=== PATIENT | female | born 1990 | race Caucasian/White ===

== ENCOUNTER → 2017-11-10 13:08 | Outpatient (CLI) | payer MEDICAID, SELFPAY ==
--- NOTE | 2017-11-10 | US_ITS ---
US transvaginal Ordering Physician: Dariel Jain MD Patient Age: 27 years: Female HISTORY: ITS.REASON: PELVIC PAIN Previous ablation 2011. No cycle since. Pelvic pain TECHNIQUE: Transvaginal pelvic ultrasound COMPARISON :May 2015 previous pelvic ultrasound FINDINGS Uterus. Uterus is normal size measuring 7.6 cm length x 3.35 cm in AP x 4.4 cm wide Most notable finding is a 1.5cm length x 1 cm AP ovoid area at fundus extending superiorly, to reside beneath the serosa at its superior margin.. There is moderate thick echogenic wall with a small 5 mm fluid center giving as a target-like appearance. This area tapers down towards the top of the endometrial cavity & possibly may communicate with it.. It was not evident previously 2011. I suspect reflects a sequela from the previous ablation procedure. May reflect a resolving of element of prior hematoma/ hematometra ,.. Or possibly displaced endometrium / with focal adenomyosis type process post ablation, these would be included the differential. A degenerative fibroid conceivably could become cystic & yield similar appearance but less likely here.. Appears almost has appearance reminiscent of a early g-sac with decidual reaction would not be the case with history of ablation. The remainder Endometrial stripe itself is somewhat ill-defined as with to be expected to post ablation... This vague ill-defined endometrial stripe post ablation measures up to nearly 8.5 mm most superiorly; and 6 mm AP at body of uterus. Previously 2016 pelvic ultrasound noted ill-defined fibroid posterior myometrium nearly 2 cm size. This prior fibroid was towards the posterior myometrium and thus I doubt would account for the area seen at the fundus seen today.. Otherwise on today's study with close inspection of images question & suspect subtle inhomogeneous posterior myometrium measuring up to 1.5-2 cm cm on today's study , which which may reflect elements of this previously better defined fibroid. Equivocal feature on today, only Questionably present.- In fact No discrete fibroid noted by technologist MW with real-time scanning this study Mild Enlarged left ovary Left ovary measures 4.3 x 3 cm x 3 cm.. The left ovary contains 2 cysts with: Cyst residing more posteriorly measures 1.9 x 1.1 cm. Cyst residing anteriorly cystmeasures 1.6 x 0.8 cm. Right ovary: 2 cm x 1.5 cm x 2 cm. Small follicles scattered throughout Fluid is in the cul-de-sac.. Fluid extends towards the right adnexa with imaged pocket of fluid measuring 3.3 cm AP x 2 cm. IMPRESSION......... Previous ablation changes yield ill-defined endometrium 1.5 x 1 cm target-like area at fundus of uterus.Moderately thick Hyperechoic rim with small fluid 5 mm central portion . Most Likely reflection of post ablation type change- as might be seen with displaced endometrium/ possible focal adenomyosis type feature, ..versus focus of resolving hematoma/hematometra . Left ovary mild enlarged 4.3 cm in length. Contains a 1.9 x 1.1 cm cyst is posterior aspect; and a 1.5 cm cyst towards its anterior aspect Right ovary unremarkable. Fluid in the cul-de-sac extends more towards right adnexa
--- NOTE | 2017-11-10 13:12 | US_ITS ---
US transvaginal Ordering Physician: Dariel Jain MD Patient Age: 27 years: Female HISTORY: ITS.REASON: pelvic pain Previous ablation 2011. No cycle since. Pelvic pain TECHNIQUE: Transvaginal pelvic ultrasound COMPARISON :May 2015 previous pelvic ultrasound FINDINGS Uterus. Uterus is normal size measuring 7.6 cm length x 3.35 cm in AP x 4.4 cm wide Most notable finding is a 1.5cm length x 1 cm AP ovoid area at the fundus extending superiorly just beneath the serosa. There is moderate thick echogenic wall with a small 5 mm fluid center giving as a target-like appearance. This area tapers down towards the top of the endometrial cavity. It was not evident previously 2011. I suspect reflects a sequela from the previous ablation procedure. May reflect a resolving of element of prior hematoma/ hemaometra ,.. or possibly displaced endometrium/endometriosis process,; these would be included the differential. A degenerative fibroid can become cystic and consider but less likely.. It almost has appearance reminiscent of a early g-sac with decidual reaction but extremely unlikely. The remainder Endometrial stripe itself is somewhat ill-defined as with to be expected to post ablation... This vague ill-defined endometrial stripe post ablation measures up to nearly 8.5 mm most superiorly; and 6 mm AP at body of uterus. Previously there is a ill-defined fibroid posterior myometrium nearly 2 cm size. This prior fibroid is towards the posterior myometrium and I doubt would account for the area at the fundus seen today.. Otherwise On close inspection of today's images I would question and suspect subtle inhomogeneous posterior myometrium which possibly could reflect residual elements of this fibroid measuring up to 1.5-2 cm cm. . Equivocal feature.Questionably present. No discrete fibroid noted by technologist MW with real-time scanning this study Mild Enlarged left ovary Left ovary measures 4.3 x 3 cm x 3 cm.. The left ovary contains 2 cysts each ontaining 2 notable cystic Cyst residing more posteriorly measures 1.9 x 1.1 cm. This is residing anteriorly cystmeasures 1.6 x 0.8 cm. Short Right ovary 2 cm x 1.5 cm x 2 cm. Small follicles scattered throughout Fluid is in the cul-de-sac. fluid extends towards the right adnexa with hypoxia fluid measuring 3.3 cm AP x 2 cm wide IMPRESSION......... Previous ablation changes yield ill-defined endometrium 1.5 x 1 cm target-like area at the fundus of uterus.Moderately thick Hyperechoic rim with small fluid 5 mm central portion . Likely reflection of post ablation type change- as might be seen with displaced endometrium or resolving hematoma. Less likely could reflect degenerating fibroid Left ovary mild enlarged 4.3 cm in length. Contains a 1.9 x 1.1 cm cyst is posterior aspect; and a 1.5 cm cyst towards its anterior aspect .. Fluid in the cul-de-sac extends towards right adnexa Right ovary unremarkable.
== END ==
PROVIDERS: Family Provider Family Medicine; PCP Family Medicine; Visit Provider Obstetrics & Gynecology
DX: R10.2 Pelvic and perineal pain (principal)
CPT/HCPCS: 76830

== ENCOUNTER → 2017-11-27 09:09 | Outpatient (CLI) | payer MEDICAID, SELFPAY ==
[2017-11-27 09:11] LABS: Microscopic, Urine URINE MICROSCOPIC (MICROSCOPIC)
[2017-11-27 09:28] LABS: Appearance,Urine CLEAR (Clear); Bilirubin,Urine Negative (Negative); Blood, Urine Negative (Negative); Color,Urine YELLOW (Yellow); Glucose,Urine (UA) Negative (Negative); Ketones,Urine Negative (Negative); Leukocyte Esterase,Urine Negative (Negative); Nitrate,Urine Negative (Negative); PH,Urine 6.5 (5.0-8.5); Protein,Urine Negative (Negative)
[2017-11-27 09:31] LABS: Urine Pregnancy, HCG Qual. Negative (Negative)
[2017-11-27 09:41] LABS: Bacteria,Urine 1+ /lpf; Mucus,Urine 1+ /lpf; WBC,Urine Occasional #/hpf (0-3)
[2017-11-27 09:46] LABS: Basophils % 0.4 % (0.1-2.0); Eosinophils # 0.3 K/mm3 (0.0-0.4); Eosinophils % 2.9 % (0.1-12.0); Hematocrit 38.4 % (37.0-47.0); Hemoglobin 12.7 g/dL (12.2-16.2); Lymphocytes # 1.4 K/mm3 (0.7-4.5); Lymphocytes % 16.1 K/mm3 (10-50); Mean Corpuscular Hemoglobin 28.6 pg (27.0-31.2); Mean Corpuscular Volume 86.7 fl (81-99); Mean Platelet Volume 8.1 fl (7.4-10.4); Monocytes # 0.5 K/mm3 (0.1-1.0); Monocytes % 5.6 % (1.7-9.3); Neutrophils # 6.5 K/mm3 (1.8-7.8); Platelet Count 376 K/mm3 (142-424); Red Blood Count 4.43 M/mm3 (4.20-5.40); Red Cell Distribution Width 12.8 % (11.5-17.5); White Blood Count 8.7 K/mm3 (4.8-10.8)
[2017-11-27 09:56] LABS: Alanine Aminotransferase 15 U/L (12-78); Albumin Level 3.9 gm/dL (3.4-5.0); Albumin/Globulin Ratio 1.1 (1.1-1.8); Alkaline Phosphatase 80 U/L (46-116); Anion Gap 10.7 mEq/L (5-15); Aspartate Amino Transferase 13 U/L (15-37); Bilirubin,Total 0.4 mg/dL (0.2-1.0); Blood Urea Nitrogen 11 mg/dL (7-18); Carbon Dioxide 30 mmol/L (21.0-32.0); Chloride 101 mmol/L (98-107); Creatinine,Serum 0.99 mg/dL (0.55-1.02); Estimated Glomerular Filt Rate 66 ml/min (>60); GFR (African American) 80 ML/MIN (>60); Globulin 3.6 gm/dl (1.3-3.2); Glucose 95 mg/dL (74-106); Potassium 3.7 mmoL/L (3.5-5.1); Sodium 138 mmol/L (136-145); Total Protein,Serum 7.5 gm/dL (6.4-8.2)
== END ==
PROVIDERS: Visit Provider Obstetrics & Gynecology
DX: Z01.812 Encounter for preprocedural laboratory examination (principal); R10.2 Pelvic and perineal pain
CPT/HCPCS: 36415; 80053; 81001; 81025; 85025

== ENCOUNTER 2017-12-01 06:04 | Observation (INO) ==
--- NOTE | 2017-12-01 06:55 | Progress Note ---
[facility] Anesthesia Checklist - Patient Identification Patient Identification: Arm Band, Verbal (Name & ) - Structural Data Admitted From: Home Planned Operative Procedure/s: LVH, possible BSO Consent for Planned Operative Procedure(s) Verified: Yes Verified Documents: Surgical Consent, History and Physical - NPO Status Verified Time NPO: 21:30 - Chart Verification Results Verified: CBC - Additional verifications Patient : No Anesthesia Reactions: No - Airway Assessment C-Spine Mobility Assessed: Yes TMJ Mobility Assessed: Yes Dentition: Good Dentition - Neurological Assessment Level of Consciousness: Awake Hx Seizures: No Numbness or tingling in extremities: No - Anesthesia Plan Anesthesia Risk discussed: Yes Anesthesia Plan: Verified ASA Class: II Anesthesia Type: General [facility] Anesthesia HX I have reviewed the patient's past medical history: Yes Medical History: Reports:: Depression Denies:: Cancer, Diabetes Mellitus Type 1, Diabetes Mellitus Type 2, MRSA, Seizures Other Medical History: Reports: Anemia, Hypothyroidism, Thyroid Disease. Denies : Blood Transfusion Reaction Laterality Cases: Bilateral: Myringotomy (Ear Tubes) Other Surgeries: Yes: Dilation and Curettage, Thyroidectomy, Tubal Ligation Amputation: No Fractures: No *Family Hx:: Coronary Artery Disease, Heart Attack, Hypertension
--- NOTE | 2017-12-01 12:14 | Operative Note ---
Date of procedure: 12/01/17 Pre-op Diagnosis:: 1. Dysfunctional uterine bleeding. 2. Pelvic pain. Post-op Diagnosis:: 1. Dysfunctional uterine bleeding. 2. Pelvic pain. Procedure performed:: Total vaginal hysterectomy, with bilateral salpingectomies. Surgeon:: Dareil Jain MD Data Analyst Etl Developer(s):: LARRY Irwin TWO WAY RADIO TECHNICIAN:: Other (TWO WAY RADIO TECHNICIAN Serafin) Anesthesia: GETA Estimated blood loss (mL): 300 Operative findings:: 1. Pelvic pain. 2. Dysfunctional uterine bleeding. Operative note:: After the patient was prepped and draped in usual fashion and general anesthesia was administered, a weighted speculum was placed within the posterior fourchette of the vagina, and the bulbous cervix was grasped with a double-tooth tenaculum, and retracted to the introitus. The cervix was circumcised with a knife, and the vaginal mucosa was sharply and bluntly dissected free. A posterior colpotomy incision was made with Sidney scissors, and the long lip of the weighted speculum was placed within the posterior peritoneum. The uterosacral ligaments on either side were Anne Marie clamped, cut, and Anne Marie suture with #1 Vicryl, as were the cardinal ligaments and uterine vessels. The peritoneum was entered anteriorly with Sidney scissors, and the long right angle retractor was placed within it. The uterus was flipped anteriorly, and the ovarian pedicle on each side was crossclamped and cut, thus removing the boggy uterine specimen. These pedicles were Anne Marie sutured, and then free tied with #1 Vicryl. Each ovary appeared normal. However, each tube presented with a hydrosalpinx, and a Filshie clip was noted on the left tube, but not on the right. On the right side, the clip was free floating and was retrieved. Each tube was grasped with a Anderson clamp, and crossclamped at its base with a Mery clamp. Each tube was excised, and the base ligated with 2-0 Vicryl. There was no undue bleeding. Pedicles were all inspected and found to be hemostatic. The posterior vaginal cuff was run unlocked with #1 Vicryl, to include the uterosacral ligament pedicles for vaginal support, in a Mathias fashion, to reduce the enterocele. The anterior peritoneum was grasped with a long Allis clamp, and closed with a running pursestring suture of 0 Vicryl, and pulled tight. The vaginal cuff was closed with an anteroposterior running locked suture of #1 Vicryl. The urine was clear in the Ashby catheter. The sponge and needle count was correct. The estimated blood loss was 300 cc. The patient tolerated the procedure well, was taken to PACU in excellent condition. Condition: stable Disposition: PACU Specimens:: 1. Uterus. 2. Bilateral fallopian tubes. Complications:: None
--- NOTE | 2017-12-01 12:31 | Progress Note ---
[facility] Anesthesia Record Part I Intake, IV Amount: 850 Estimated blood loss (mL): 20 Urine output (mL): 50 Blood Products used (#): none Blood Pressure: 131/81 SaO2: 99 Pulse Rate: 104 Respiratory Rate: 18 Temperature: 98.4 F Patient is:: Drowsy, Nasal O2, Stable Stable to PACU at:: 12:27
--- NOTE | 2017-12-01 12:32 | Progress Note ---
[facility] Anesthesia Record Part II Discharge Time: 12:57 Destination: Obstetric Gynecology Dept PACU nurse assessment reviewed?: Yes Patient Condition:: Good Anesthesia Complications:: None
[2017-12-01 13:32] LABS: Hematocrit 33.4 % (37.0-47.0)
--- NOTE | 2017-12-01 13:37 | Progress Note ---
Internal Medicine - PN: Subj *Date: 12/01/17 *Time: 13:36 (Ashby will be removed early in the morning.) Exam Vital signs and Labs for Last 24 Hours: Temp Pulse Resp BP Pulse Ox 98.4 F 99 H 18 131/77 96 12/01/17 12:31 12/01/17 12:47 12/01/17 12:47 12/01/17 12:47 12/01/17 12:47 Laboratory Results - last 24 hr 12/01/17 11:05: Urine Color Yellow, Urine Appearance Sl cloudy, Urine pH 7.5, Ur Specific [place] 1.015, Urine Protein Trace, Urine Glucose (UA) Negative, Urine Ketones Negative, Urine Blood Negative, Urine Nitrate Negative, Urine Bilirubin Negative, Urine Urobilinogen 1.0, Ur Leukocyte Esterase Negative, Urine RBC None, Urine WBC None, Ur Squamous Epith Cells 3-5, Urine Bacteria 1+ 12/01/17 13:20: Hgb 11.0 L, Hct 33.4 L I & O for Last 24 hours: Intake & Output 11/29/17 11/30/17 12/01/17 12/02/17 11:59 11:59 11:59 11:59 Intake Total 850 / 850 Balance 850 / 850 Weight 140 lb
--- NOTE | 2017-12-02 07:26 | Pharmacy Consult Notes ---
[facility] Pharmacy VTE Monitoring - Patient Demographics Admission date: 12/01/17 Report Date: 12/02/17 Time: 07:26 Allergies/Adverse Reactions: Patient Allergies No Known Allergies Allergy (Verified 11/27/17 08:39) Height: 1.6 m Weight: 63.503 kg - VTE Risk Labs: VTE Related Lab Results Hgb 11.0 g/dL (12.2-16.2) L 12/01/17 13:20 Hct 33.4 % (37.0-47.0) L 12/01/17 13:20 - Prophylaxis VTE Prophylaxis Ordered?: Yes Types of VTE Prophylaxis: IPCS Thigh High Location of Applied Device: Bilateral Lower Extremeties - VTE Diagnosis Confirmed Treatment or plan recommended: Continue Current Treatment
--- NOTE | 2017-12-02 07:33 | Progress Note ---
Internal Medicine - PN: Subj *Date: 12/02/17 *Time: 07:31 (This is postop day #1. The patient is afebrile. Her vital signs are stable. Wound is clean. Her abdomen is soft. Her Ashby is out and she has voided well. Her MARY drain drained 100 cc of watery blood overnight. Her hemoglobin dropped slightly to 9.7 g, but she is clinically stable. Going to advance her diet and have her ambulate today.) Exam Vital signs and Labs for Last 24 Hours: Temp Pulse Resp BP Pulse Ox 98.0 F 68 17 133/80 100 12/01/17 21:30 12/02/17 00:30 12/02/17 00:30 12/02/17 00:30 12/02/17 04:08 Laboratory Results - last 24 hr 12/01/17 11:05: Urine Color Yellow, Urine Appearance Sl cloudy, Urine pH 7.5, Ur Specific [place] 1.015, Urine Protein Trace, Urine Glucose (UA) Negative, Urine Ketones Negative, Urine Blood Negative, Urine Nitrate Negative, Urine Bilirubin Negative, Urine Urobilinogen 1.0, Ur Leukocyte Esterase Negative, Urine RBC None, Urine WBC None, Ur Squamous Epith Cells 3-5, Urine Bacteria 1+ 12/01/17 13:20: Hgb 11.0 L, Hct 33.4 L I & O for Last 24 hours: Intake & Output 11/29/17 11/30/17 12/01/17 12/02/17 11:59 11:59 11:59 11:59 Intake Total 2797 / 2797 Output Total 1400 / 1400 Balance 1397 / 1397 Weight 140 lb 140 lb
--- NOTE | 2017-12-02 07:40 | Progress Note ---
Internal Medicine - PN: Subj *Date: 12/02/17 *Time: 07:38 (The last progress note was incorrect (wrong patient)this is postop day #1. The patient is afebrile. Her vital signs are stable. Her hemoglobin is 11.1 g. Her abdomen is soft. Her Ashby will be removed. During the night, she had runs of tachycardia. An EKG was read as normal, but the patient has a strong family history of early myocardial infarctions. I am going to put a consult in to cardiology to evaluate the patient.) Exam Vital signs and Labs for Last 24 Hours: Temp Pulse Resp BP Pulse Ox 98.0 F 68 17 133/80 100 12/01/17 21:30 12/02/17 00:30 12/02/17 00:30 12/02/17 00:30 12/02/17 04:08 Laboratory Results - last 24 hr 12/01/17 11:05: Urine Color Yellow, Urine Appearance Sl cloudy, Urine pH 7.5, Ur Specific [place] 1.015, Urine Protein Trace, Urine Glucose (UA) Negative, Urine Ketones Negative, Urine Blood Negative, Urine Nitrate Negative, Urine Bilirubin Negative, Urine Urobilinogen 1.0, Ur Leukocyte Esterase Negative, Urine RBC None, Urine WBC None, Ur Squamous Epith Cells 3-5, Urine Bacteria 1+ 12/01/17 13:20: Hgb 11.0 L, Hct 33.4 L I & O for Last 24 hours: Intake & Output 11/29/17 11/30/17 12/01/17 12/02/17 11:59 11:59 11:59 11:59 Intake Total 2797 / 2797 Output Total 1400 / 1400 Balance 1397 / 1397 Weight 140 lb 140 lb
--- NOTE | 2017-12-02 09:45 | Consult Report ---
History of Present Illness Consult date: 12/02/17 Requesting physician: Dariel Jain Chief complaint: Tachycardia Additional Medical History:: 1. Hysterectomy 2. Tachycardia 3. History of Nadine's thyroiditis with subsequent thyroidectomy, 2010. Patient on thyroid replacement with subsequent weight loss over the last several years. 4. Strong family history of early coronary artery disease (their mid 40s) in both her father and paternal grandfather. History of present illness: 27-year-old white female with history of Nadine's thyroiditis status post thyroidectomy and subsequent thyroid replacement was in the hospital for hysterectomy with no history of cancer, diabetes, hypertension or hyperlipidemia. Patient noted to have labile heart rate from 60s-140s on pulse oximetry without symptoms. Due to strong family history of early coronary artery disease, cardiology was asked to see the patient. Patient's preop labs are essentially normal with EKG showing sinus rhythm and essentially normal. Patient has 4 healthy kids ranging in age from 5-12 and is active with them without chest pain, pressure or tightness. She denies any IV drug use. She does not smoke. She does relate a one-month history of Adipex use recently but discontinued it when surgery was planned. [facility] History Medical History: Reports:: Depression Denies:: Cancer, Diabetes Mellitus Type 1, Diabetes Mellitus Type 2, MRSA, Seizures Other Medical History: Reports: Anemia, Hypothyroidism, Thyroid Disease. Denies : Blood Transfusion Reaction Laterality Cases: Bilateral: Myringotomy (Ear Tubes) Other Surgeries: Yes: Dilation and Curettage, Thyroidectomy, Tubal Ligation Amputation: No Fractures: No - *Social History Educational Level: Attended Grade School Smoking Status: Never smoker Alcohol Intake: never Substance Use Type: denies use Occupational Status: unemployed Housing: house Household Members: spouse - Psychiatric History Expresses thoughts of harming self/others: None Suicide Plan Description: No Plan Pschychiatric History:: Reports:: Depression *Family Hx:: Coronary Artery Disease, Heart Attack, Hypertension Meds Home Medications Medication Instructions Recorded Confirmed Type phentermine 37.5 mg capsule 37.5 mg PO DAILY 11/13/17 12/01/17 History Levothyroxine Sodium 125 mcg PO DAILY 12/01/17 12/01/17 History [Levothyroxine 125mcg (0.125mg) Tab] Fluticasone Propionate 16 gm NS DAILY 12/02/17 12/02/17 History Loratadine [Claritin 10mg Tablet] 10 mg PO DAILY 12/02/17 12/02/17 History Allergies Allergy/AdvReac Type Severity Reaction Status Date / Time No Known Allergies Allergy Verified 11/27/17 08:39 Review of Systems - *Cardiovascular Denies chest pain, Denies shortness of breath with activity - *Respiratory Denies shortness of breath with activity - *Gastrointestinal Denies abdominal pain - *Genitourinary Denies abnormal periods - *Musculoskeletal Denies joint pain - *Neurologic Denies behavioral changes Exam Vital signs and Labs for Last 24 Hours: Temp Pulse Resp BP Pulse Ox 98.0 F 107 H 18 130/74 100 12/02/17 08:12 12/02/17 08:12 12/02/17 08:12 12/02/17 08:12 12/02/17 08:17 Laboratory Results - last 24 hr 12/01/17 11:05: Urine Color Yellow, Urine Appearance Sl cloudy, Urine pH 7.5, Ur Specific [place] 1.015, Urine Protein Trace, Urine Glucose (UA) Negative, Urine Ketones Negative, Urine Blood Negative, Urine Nitrate Negative, Urine Bilirubin Negative, Urine Urobilinogen 1.0, Ur Leukocyte Esterase Negative, Urine RBC None, Urine WBC None, Ur Squamous Epith Cells 3-5, Urine Bacteria 1+ 12/01/17 13:20: Hgb 11.0 L, Hct 33.4 L I & O for Last 24 hours: Intake & Output 11/29/17 11/30/17 12/01/17 12/02/17 11:59 11:59 11:59 11:59 Intake Total 2797 / 2797 Output Total 1999 Balance 797 / 797 Weight 140 lb 140 lb - *Routine Neck Exam Absent: JVD, carotid bruit - *Routine Respiratory Exam Present: CTA bilaterally - *Routine Cardiovascular Exam Present: RRR. Absent: murmur, gallop, rubs - *Routine Abdominal Exam Present: soft. Absent: tenderness - *Routine Extremities Exam Absent: edema - *Routine Neurological Exam Present: alert, oriented X3, moving all extremities Assessment and Plan (1) Tachycardia Current visit: Yes Status: Acute Category: Medical Code(s): R00.0 - Tachycardia, unspecified (2) Hypothyroidism Current visit: Yes Status: Acute Category: Medical Code(s): E03.9 - Hypothyroidism, unspecified (3) Status post hysterectomy Current visit: Yes Status: Acute Category: Surgical Code(s): Z90.710 - Acquired absence of both cervix and uterus (4) Family history of coronary artery disease in father Current visit: Yes Status: Acute Category: Medical Code(s): Z82.49 - Family history of ischemic heart disease and other diseases of the circulatory system (5) Family history of coronary artery disease in paternal grandfather Current visit: Yes Status: Acute Category: Medical Code(s): Z82.49 - Family history of ischemic heart disease and other diseases of the circulatory system - Assessment and plan all Dx Assessment and Plan for all problems:: 1. Will obtain an echocardiogram to evaluate left ventricular size and function as well as valve status in the setting of tachycardia and recent Adipex use. 2. Will obtain lab work including thyroid panel, BMP and magnesium level. 3. Would like to obtain a 24-hour Holter monitor upon discharge. 4. Supplemental oxygen discontinued with plans to check oxygen saturation on room air and 15 minutes. 5. Further recommendations to follow.
[2017-12-02 10:21] LABS: Anion Gap 9.4 mEq/L (5-15); Calcium 8.5 mg/dL (8.5-10.1); Free Thyroxine Index 6.9 ug/dL (5.93-13.13); Potassium 3.4 mmoL/L (3.5-5.1); Thyroid Stimulating Hormone 0.03 uIU/ml (0.358-3.740)
--- NOTE | 2017-12-03 06:45 | Progress Note ---
Internal Medicine - PN: Subj *Date: 12/03/17 *Time: 06:44 (This is postop day #2. The patient is afebrile. Vital signs stable. Abdomen soft. Urinating well. She has had a cardiology consult because of tachycardia. Her thyroid medication has been adjusted and she is to follow-up with Dr. Marx. She will be discharged today.) Exam Vital signs and Labs for Last 24 Hours: Temp Pulse Resp BP Pulse Ox 98.0 F 104 H 17 125/78 100 12/02/17 16:20 12/03/17 06:11 12/03/17 06:11 12/03/17 06:11 12/02/17 20:29 Laboratory Results - last 24 hr 12/02/17 09:50: Sodium 144, Potassium 3.4 L, Chloride 105, Carbon Dioxide 33 H, Anion Gap 9.4, BUN 5 L, Creatinine 0.87, Estimated Creat Clear 96, Estimated GFR 77, Est GFR ( Amer) 93, Glucose 134 H, Calcium 8.5, Magnesium 1.8, TSH 0.03 L, Free T4 Index 6.9, Thyroxine (T4) 16.0 H, T3 Uptake 43 H I & O for Last 24 hours: Intake & Output 11/30/17 12/01/17 12/02/17 12/03/17 11:59 11:59 11:59 11:59 Intake Total 2797 / 2797 Output Total 1999 Balance 797 / 797 -1999 Weight 140 lb 140 lb Assessment and Plan (1) Tachycardia Current visit: Yes Status: Acute Category: Medical Code(s): R00.0 - Tachycardia, unspecified (2) Hypothyroidism Current visit: Yes Status: Acute Category: Medical Code(s): E03.9 - Hypothyroidism, unspecified (3) Status post hysterectomy Current visit: Yes Status: Acute Category: Surgical Code(s): Z90.710 - Acquired absence of both cervix and uterus (4) Family history of coronary artery disease in father Current visit: Yes Status: Acute Category: Medical Code(s): Z82.49 - Family history of ischemic heart disease and other diseases of the circulatory system (5) Family history of coronary artery disease in paternal grandfather Current visit: Yes Status: Acute Category: Medical Code(s): Z82.49 - Family history of ischemic heart disease and other diseases of the circulatory system
--- NOTE | 2017-12-03 06:50 | Discharge Summary ---
General - General Admission date:: 12/01/17 Discharge date: 12/03/17 (This 27-year-old white female was admitted for definitive treatment of dysfunctional uterine bleeding and pelvic pain. On the date of admission, she was taken the operating room, where she underwent a total vaginal hysterectomy and bilateral salpingectomies, without complications. Her preop hemoglobin was 12.5 g. Postoperatively, the patient was doing well in the night following surgery, when she began to have runs of tachycardia. An EKG was essentially normal, but a cardiology consult was obtained on 12/02/17. The results of that were: Normal from a cardiac point of view. Her thyroid medication has been adjusted, and she is to follow with her primary care physician (Dr. Marx). This morning she is doing well. Her hemoglobin is 11.0 g, but she is clinically stable. She is discharged home on the second postoperative day on Percocet 5/325 (#20), 1 p.o. every 4-6 hours as needed pain. She is to use Tylenol and Motrin intermittently and after a few days as needed. She is given appropriate instructions as to diet and exercise, and she is to return to the office in 2 weeks for folow-up. She is a smoker, but refuses smoking cessation patches.) Objective Vital signs: Temp Pulse Resp BP Pulse Ox 98.0 F 104 H 17 125/78 100 12/02/17 16:20 12/03/17 06:11 12/03/17 06:11 12/03/17 06:11 12/02/17 20:29 Results Labs on day of discharge: Labs from last 24 hours 12/02/17 09:50 Sodium 144 Potassium 3.4 L Chloride 105 Carbon Dioxide 33 H Anion Gap 9.4 BUN 5 L Creatinine 0.87 Estimated Creat Clear 96 Estimated GFR 77 Est GFR ( Amer) 93 Glucose 134 H Calcium 8.5 Magnesium 1.8 TSH 0.03 L Free T4 Index 6.9 Thyroxine (T4) 16.0 H T3 Uptake 43 H DS: Diagnosis - Discharge Diagnosis (1) Tachycardia Status: Acute (2) Hypothyroidism Status: Acute (3) Status post hysterectomy Status: Acute (4) Family history of coronary artery disease in father Status: Acute (5) Family history of coronary artery disease in paternal grandfather Status: Acute Discharge Plan - Patient Discharge Instructions - Follow up Plan Home Medications: Home Medications Medication Instructions Recorded Confirmed Type phentermine 37.5 mg capsule 37.5 mg PO DAILY 11/13/17 12/01/17 History Levothyroxine Sodium 125 mcg PO DAILY 12/01/17 12/01/17 History [Levothyroxine 125mcg (0.125mg) Tab] Fluticasone Propionate 16 gm NS DAILY 12/02/17 12/02/17 History Loratadine [Claritin 10mg Tablet] 10 mg PO DAILY 12/02/17 12/02/17 History Prescriptions/Medication Reconciliation: No Action phentermine 37.5 mg capsule 37.5 mg PO DAILY Loratadine [Claritin 10mg Tablet] 10 mg PO DAILY Levothyroxine Sodium [Levothyroxine 125mcg (0.125mg) Tab] 125 mcg PO DAILY Fluticasone Propionate 16 gm NS DAILY
--- NOTE | 2017-12-03 13:19 | Cardiology Report ---
PROCEDURE: 2-D M-mode and color Doppler study INDICATIONS FOR THE TEST: Chest pain COPD Heart Murmur Tobacco Smoking Palpitations Fatigue Syncope Edema+ Hypertension Diabetes Mellitus Rheumatic Fever SOB RAMIREZ Obesity Hyperlipidemia Family History HD+ Additional History Adipex usage, hx of Nadine's thyroiditis, post hysterectomy 1 day ago with tachycardia PATIENT INFORMATION HEIGHT: 63 WEIGHT: 140 GENDER: Female B/P: 130/74 2-D/M-MODE INTERPRETATION: 2-D MEASUREMENTS OBSERVED VALUES IN CMS Right Ventricular Dimension (RVDd) 1.9 Interventricular Septum (Thickness)(IVsd) 0.7 Left Ventricular Internal Dimensions(LVIDd) 4.0 Left Ventricular Posterior Wall (Thickness)(LVPWd) 0.7 Aortic Root 2.6 Aortic Cusp Separation 2.0 Left Atrial Dimensions (LAD) 2.6 2D 1. Left atrium is normal size, is normal size, there is no concentric left ventricular hypertrophy, visually estimated ejection fraction of 55% with no obvious regional wall motion abnormality. 2. The right atrium and right ventricle are normal size and contractility. 3. The aortic, mitral and tricuspid valve are grossly normal. 4. The pulmonic valve is poorly visualized. 5. No significant pericardial effusion noted. DOPPLER INTERROGATION: Doppler interrogation of the aortic, mitral and tricuspid valvular presence of mild mitral and tricuspid regurgitation, tricuspid and jet velocity is insufficient for calculation of the right ventricular systolic pressure, diastolic parameters are within normal range. CONCLUSION: 1. Normal left ventricular size, preserved left ventricular systolic function, visually estimated ejection fraction 55% with no obvious regional wall motion abnormality, diastolic parameters are within normal range. 2. Mild mitral and tricuspid regurgitation 3. No significant pericardial effusion noted.
== END 2017-12-03 09:25 | disposition home or self-care (01) ==
LOC: OR 06:04 → OB 13:03 → INTOOBSV 13:03
PROVIDERS: ADMIT Obstetrics & Gynecology; ATTEND Obstetrics & Gynecology

== ENCOUNTER → 2018-06-17 12:27 | Outpatient (CLI) | payer MEDICAID, SELFPAY ==
[2018-06-17 13:18] LABS: Basophils % 0.8 % (0.1-2.0); Eosinophils # 0.2 K/mm3 (0.0-0.4); Eosinophils % 4.1 % (0.1-12.0); Hematocrit 40.4 % (37.0-47.0); Hemoglobin 13.1 g/dL (12.2-16.2); Lymphocytes # 1.6 K/mm3 (0.7-4.5); Lymphocytes % 28.7 % (10-50); Mean Corpuscular HGB Conc 32.5 g/dL (31.8-35.4); Mean Corpuscular Hemoglobin 29.3 pg (27.0-31.2); Mean Corpuscular Volume 90.1 fl (81-99); Mean Platelet Volume 8.5 fl (7.4-10.4); Monocytes # 0.4 K/mm3 (0.1-1.0); Monocytes % 6.3 % (1.7-9.3); Neutrophils # 3.4 K/mm3 (1.8-7.8); Neutrophils % 60.2 % (37.0-80.0); Platelet Count 268 K/mm3 (142-424); Red Blood Count 4.48 M/mm3 (4.20-5.40); Red Cell Distribution Width 12.9 % (11.5-17.5); White Blood Count 5.6 K/mm3 (4.8-10.8)
[2018-06-17 13:21] LABS: Anion Gap 14.1 mEq/L (5-15); Blood Urea Nitrogen 13 mg/dL (7-18); Calcium 8.9 mg/dL (8.5-10.1); Carbon Dioxide 27 mmol/L (21.0-32.0); Chloride 103 mmol/L (98-107); Estimated Glomerular Filt Rate 74 ml/min (>60); GFR (African American) 89 ML/MIN (>60); Glucose 93 mg/dL (74-106); Potassium 4.1 mmoL/L (3.5-5.1); Sodium 140 mmol/L (136-145)
== END ==
PROVIDERS: PCP Family Medicine; Visit Provider Internal Medicine Cardiovascular Disease
DX: I20.8 Other forms of angina pectoris (principal); R06.02 Shortness of breath; Z82.49 Family history of ischemic heart disease and other diseases of the circulatory system
CPT/HCPCS: 36415; 80048; 85025

== ENCOUNTER → 2018-06-29 06:58 | Outpatient (CLI) | payer MEDICAID, SELFPAY ==
--- NOTE | 2018-06-29 06:59 | CA_ITS ---
PROCEDURE: 2-D M-mode and color Doppler study INDICATIONS FOR THE TEST: Chest pain X COPD Heart Murmur Tobacco Smoking Palpitations Fatigue Syncope Edema Hypertension Diabetes Mellitus Rheumatic Fever SOBXDOE Obesity Hyperlipidemia Family History HD Additional History PATIENT INFORMATION HEIGHT: 64 WEIGHT:146 GENDER: Female B/P:127/87 2-D/M-MODE INTERPRETATION: 2-D MEASUREMENTS OBSERVED VALUES IN CMS Right Ventricular Dimension (RVDd) 1.6 Interventricular Septum (Thickness)(IVsd) .8 Left Ventricular Internal Dimensions(LVIDd) 4.8 Left Ventricular Posterior Wall (Thickness)(LVPWd) .6 Aortic Root 2.7 Aortic Cusp Separation 1.5 Left Atrial Dimensions (LAD) 2.8 2D 1. Left atrium is normal size, left ventricle is normal size, there is no concentric left ventricular hypertrophy, visually estimated ejection fraction 55% with no regional wall motion abnormality. 2. The right atrium and right ventricle are normal size and contractility. 3. The aortic, mitral and tricuspid valve are grossly normal. 4. The pulmonic valve is poorly visualized. 5. No significant pericardial effusion noted. DOPPLER INTERROGATION: Doppler interrogation of the aortic, mitral and tricuspid valvular presence of trace mitral and tricuspid regurgitation of no hemodynamic significance, diastolic parameters are within normal range. CONCLUSION: 1. Normal left ventricular size, preserved left ventricular systolic function, visually estimated ejection fraction 55% with no regional wall motion abnormality, diastolic parameters are within normal range. 2. Trace mitral and tricuspid regurgitation of no hemodynamic significance. 3. No significant pericardial effusion noted.
== END ==
PROVIDERS: PCP Family Medicine; Visit Provider Internal Medicine Cardiovascular Disease
DX: I20.8 Other forms of angina pectoris (principal); R06.02 Shortness of breath; Z82.49 Family history of ischemic heart disease and other diseases of the circulatory system
CPT/HCPCS: 93017; 93306; 95806

== ENCOUNTER → 2019-08-13 09:03 | Outpatient (CLI) | payer OTHER, SELFPAY ==
[2019-08-14 16:29] LABS: Covid-19 Nasal PCR Sendout Lex NOT DETECTED
--- NOTE | 2019-08-14 17:02 | PC.NURSE ---
1700-notified pt of negative COVID 19 results.
--- NOTE | 2019-08-14 17:30 | PC.NURSE ---
1725-notified of negative COVID 19 results.
== END ==
PROVIDERS: Visit Provider Family Medicine
DX: U07.1 COVID-19 (principal); B34.8 Other viral infections of unspecified site; J22 Unspecified acute lower respiratory infection
CPT/HCPCS: U0003

== ENCOUNTER → 2019-11-24 12:50 | Outpatient (CLI) | payer OTHER, SELFPAY | PROVIDERS: PCP Family Medicine; Visit Provider Nurse Practitioner | DX: Z03.818 Encounter for observation for suspected exposure to other biological agents ruled out (principal) | CPT/HCPCS: U0003 ==

== ENCOUNTER → 2020-03-13 14:05 | Outpatient (CLI) | payer OTHER, SELFPAY ==
[2020-03-13 16:02] LABS: Basophils # 0.1 K/mm3 (0-0.2); Basophils % 0.9 % (0.1-2.0); Eosinophils # 0.2 K/mm3 (0.0-0.4); Eosinophils % 2.6 % (0.1-12.0); Hematocrit 43.2 % (37.0-47.0); Hemoglobin 14.5 g/dL (12.2-16.2); Lymphocytes # 1.6 K/mm3 (0.7-4.5); Lymphocytes % 20.2 % (10-50); Mean Corpuscular HGB Conc 33.5 g/dL (31.8-35.4); Mean Corpuscular Volume 89.5 fl (81-99); Mean Platelet Volume 10.4 fl (7.4-10.4); Monocytes # 0.4 K/mm3 (0.1-1.0); Neutrophils # 5.8 K/mm3 (1.8-7.8); Neutrophils % 71.4 % (37.0-80.0); Platelet Count 358 K/mm3 (142-424); Red Blood Count 4.82 M/mm3 (4.20-5.40); Red Cell Distribution Width 14.4 % (11.5-17.5); White Blood Count 8.2 K/mm3 (4.8-10.8)
[2020-03-13 16:07] LABS: Alanine Aminotransferase 9 U/L (12-78); Albumin Level 4.5 g/dl (3.5-5.0); Albumin/Globulin Ratio 1.3 (1.1-1.8); Alkaline Phosphatase 75 U/L (38-126); Anion Gap 14.3 mEq/L (5-15); Aspartate Amino Transferase 25 U/L (14-36); Bilirubin,Total 0.6 mg/dl (0.2-1.3); Blood Urea Nitrogen 9 mg/dl (7-17); Carbon Dioxide 28 mmol/L (22.0-30.0); Chloride 100 mmol/L (98-107); Estimated Glomerular Filt Rate 73 ml/min (>60); GFR (African American) 88 ML/MIN (>60); Globulin 3.4 g/dL (1.3-3.2); Glucose 86 mg/dl (74-100); Potassium 4.3 mmoL/L (3.5-5.1); Sodium 138 mmol/L (136-145); Total Protein,Serum 7.9 g/dl (6.3-8.2)
== END ==
PROVIDERS: Visit Provider Obstetrics & Gynecology
DX: R10.2 Pelvic and perineal pain (principal)
CPT/HCPCS: 36415; 80053; 85025

== ENCOUNTER → 2020-03-16 09:02 | Outpatient (CLI) | payer OTHER, SELFPAY ==
--- NOTE | 2020-03-16 09:03 | CT_ITS ---
PROCEDURE: CT ABDOMEN PELVIS WO/W CON CLINICAL INDICATION: pelvic pain COMPARISON: CT CT ABDOMEN PELVIS W CON from 03/08/2019 TECHNIQUE: IV Contrast: 75ML OPTIRAY 350 Oral Contrast none given Axial images obtained with sagittal and coronal reformats. All CT scans at the facility use one or more dose reduction, viz: automated exposure control, ma/kV adjustment per patient size (including targeted exams where dose is matched to indication, i.e. head), or iterative reconstruction technique. FINDINGS: Lower thorax: The lower lung hernandez are clear there is no pleural fluid. ABDOMEN: Liver: No masses or biliary dilatation. Gallbladder: Nondistended. No radio opaque stones. Pancreas: No masses or peripancreatic fluid collections. Spleen: unremarkable Adrenals: unremarkable Kidneys/ureters: Kidneys are normal in size and show symmetrical function both appearing normal. ABDOMEN & PELVIS: Stomach bowel: The stomach and duodenal sweep normal. The small bowel is unremarkable. There is a moderate amount stool in the cecum and ascending colon with scattered stool and gas seen in the distal transverse colon, descending and sigmoid colon. The rectum is normal. Peritoneum: No abnormal fluid collections. No obvious inflammatory changes. No free air. Lymph nodes: No enlarged lymph nodes apparent. Vasculature: No evidence of abdominal aortic aneurysm. No retroperitoneal hemorrhage evident. Bones: No acute fracture PELVIS: Reproductive: Post hysterectomy, are bilateral tubal ligation clips seen. Bladder: The urinary bladder is partially decompressed otherwise appears normal, there is no free fluid in the pelvis. Appendix: The appendix is not definitely identified but there are no pericecal inflammatory changes. IMPRESSION: No significant acute abdominal or pelvic pathology identified Dictated by: Dr. Dharmesh Huff MD 03/16/2020 11:17 Dr. Dharmesh Huff MD in [facility] 03/16/2020 11:17
== END ==
PROVIDERS: PCP Family Medicine; Visit Provider Obstetrics & Gynecology
DX: R10.2 Pelvic and perineal pain (principal)
CPT/HCPCS: 74178; Q9967

== ENCOUNTER → 2020-06-18 12:52 | Outpatient (CLI) | payer OTHER, SELFPAY ==
--- NOTE | 2020-06-18 12:52 | US_ITS ---
PROCEDURE: US TRANSVAGINAL CLINICAL INDICATION: 3 mo f/u on Right ovarian cyst COMPARISON: US TRANVAG US transvaginal from 11/10/[address] ABDOMEN PELVIS WO/W CON from 03/16/2020 FINDINGS: Prior hysterectomy LEFT OVARY: [id number] with a volume of 6.8ml. RIGHT OVARY: [id number] with a volume of 2.6ml. Small bilateral ovarian follicles noted. No cul-de-sac fluid IMPRESSION: Prior hysterectomy. Nonspecific small bilateral ovarian follicles measuring up to 1.4 cm on the left and 1 cm on right Dictated by: Alejandro Palafox MD 06/18/2020 16:35 Alejandro Palafox MD in [facility] 06/18/2020 16:36
== END ==
PROVIDERS: PCP Family Medicine; Visit Provider Obstetrics & Gynecology
DX: N83.201 Unspecified ovarian cyst, right side (principal)
CPT/HCPCS: 76830

== ENCOUNTER 2021-07-15 18:42 | Emergency (ER) | payer OTHER, SELFPAY ==
[2021-07-15 19:19] VITALS: BP 149/104; PULSE 80; RESP 16; TEMP 37.1; O2SAT 98; BMI 28.8
--- NOTE | 2021-07-15 19:30 | CT_ITS ---
PROCEDURE INFORMATION: Exam: CT Maxillofacial Without Contrast Exam date and time: 07/15/2021 7:35 PM Age: 31 years old Clinical indication: Injury or trauma; Other: Dog ran into her eye; Blunt trauma (contusions or hematomas); Forehead and other: Over left eye; Injury date: 07/15/21; Injury details: Large hematoma above left eye, dog ran into her; Additional info: Face injury TECHNIQUE: Imaging protocol: Computed tomography images of the face without contrast. Radiation optimization: All CT scans at this facility use at least one of these dose optimization techniques: automated exposure control; mA and/or kV adjustment per patient size (includes targeted exams where dose is matched to clinical indication); or iterative reconstruction. COMPARISON: No relevant prior studies available. FINDINGS: Orbital cavities: See below. Globes are unremarkable. Bones/joints: No acute fracture. Paranasal sinuses: Material within the right maxillary sinus. Soft tissues: Left frontal and periorbital soft tissue swelling. 16 x 12 mm ovoid left maxillary subcutaneous nodule. IMPRESSION: 1. Left frontal and periorbital soft tissue swelling. 2. 16 x 12 mm ovoid left maxillary subcutaneous nodule. 3. Material within the right maxillary sinus.
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
[2021-07-15 20:48] VITALS: BP 144/103; PULSE 75; RESP 18; TEMP 37.1; O2SAT 100
== END 2021-07-15 20:52 | disposition home or self-care (01) ==
LOC: UTC 18:48 → ER 18:59
PROVIDERS: Emergency Provider Student in an Organized Health Care Education/Training Program; PCP Nurse Practitioner Family
DX: H11.32 Conjunctival hemorrhage, left eye (principal); I20.9 Angina pectoris, unspecified; N92.6 Irregular menstruation, unspecified; R06.02 Shortness of breath; R51.9 Headache, unspecified; R22.0 Localized swelling, mass and lump, head; R40.0 Somnolence; D64.9 Anemia, unspecified; L50.9 Urticaria, unspecified; E89.0 Postprocedural hypothyroidism; F32.A Depression, unspecified; Z79.52 Long term (current) use of systemic steroids; Z91.040 Latex allergy status; Z82.49 Family history of ischemic heart disease and other diseases of the circulatory system
CPT/HCPCS: 70486; 99284

== ENCOUNTER → 2021-08-05 17:46 | Outpatient (CLI) | payer OTHER, SELFPAY | PROVIDERS: PCP Family Medicine; Visit Provider Student in an Organized Health Care Education/Training Program | DX: Z01.812 Encounter for preprocedural laboratory examination (principal); Z11.52 Encounter for screening for COVID-19; S00.83XA Contusion of other part of head, initial encounter; S09.93XA Unspecified injury of face, initial encounter; L72.0 Epidermal cyst | CPT/HCPCS: C9803; U0003; U0005 ==

== ENCOUNTER 2021-08-07 07:40 | Day surgery (SDC) | payer OTHER, SELFPAY ==
[2021-08-05 13:22] VITALS: BMI 29.2
[2021-08-07] VITALS (10 sets, daily range): BP systolic 108–121; BP diastolic 75–85; PULSE 72–95; RESP 12–20; TEMP 36.2–36.7; O2SAT 94–100
--- NOTE | 2021-08-07 08:29 | HMH.ANESCL ---
[facility] Anesthesia Checklist - Patient Identification Patient Identification: Arm Band - Structural Data Admitted From: Home Planned Operative Procedure/s: Excision Left Facial Mass Consent for Planned Operative Procedure(s) Verified: Yes Verified Documents: Surgical Consent, History and Physical - NPO Status Verified Time NPO: 00:00 - Additional verifications Anesthesia Reactions: No Hx Blood Transfusions: No Blood Transfusion Reaction: No - Airway Assessment C-Spine Mobility Assessed: Yes (mp2) TMJ Mobility Assessed: Yes Dentition: Good Dentition - Neurological Assessment Level of Consciousness: Awake, Alert - Anesthesia Plan Anesthesia Risk discussed: Yes Anesthesia Plan: Verified ASA Class: I Anesthesia Type: MAC [facility] History I have reviewed the patient's past medical history: Yes Medical History: Reports:: Depression Denies:: Cancer, Diabetes Mellitus Type 1, Diabetes Mellitus Type 2, Internal Pacemaker, MRSA, Seizures *Have you ever received a pneumonia vaccine?: No *Have you received a flu vaccine this season?: No Other Medical History: Reports: Anemia, Hypothyroidism, Thyroid Disease. Denies: Blood Transfusion Reaction Anesthesia experience/problems:: nac Laterality Cases: Bilateral: Myringotomy (Ear Tubes) Other Surgeries: Yes: Dilation and Curettage, Hysterectomy-Total, Thyroidectomy, Tubal Ligation. No: Pacemaker Amputation: No Fractures: No - *Social History Last grade of school completed: 9th or 10th Smoking Status: Never smoker Alcohol Intake: never Alcohol Intake Frequency:: holidays/special occasions only Substance Use Type: denies use *Occupational Status:: employed Housing: house Household Members: children *Travel in the last 8 weeks: None - Psychiatric History Pschychiatric History:: Reports:: Depression Family Hx:: No significant family history
--- NOTE | 2021-08-07 10:12 | HMH.OPNOTE ---
Date of procedure: 08/07/21 Pre-op Diagnosis:: left facial mass Post-op Diagnosis:: left facial mass Procedure performed:: excision benign left facial mass Surgeon:: Pipo Mccoy MD [employer] MA[employer]GER:: Twyla Reilly Anesthesia: GETA, LMA Estimated blood loss (mL): 2 Operative findings:: left facial mass consistent with epidermoid cyst excised Operative note:: Patient was brought to the OR, laid in the supine position, general anesthesia with an LMA was induced. Patient was prepped and draped in usual fashion. Approximately 2 cc of lidocaine 2% with epinephrine 1-100,000 was injected over the left facial mass. Mass was situated superficially in the left mid face area. I then dissected through the skin and identified the mass. It appeared consistent with an epidermoid cyst, approximately 2 cm in diameter. I then dissected around the capsule of the cyst and excised it from the patient's neck. Wound was then thoroughly irrigated and suctioned out. The wound was then closed in 2 layers. She was then turned back over to anesthesia to be awoken. Condition: stable Disposition: PACU Complications:: none
--- NOTE | 2021-08-07 10:15 | P.PN_ITS ---
[facility] Anesthesia Record Part I Intake, IV Amount: 600 Estimated blood loss (mL): 0 Urine output (mL): 0 Blood Pressure: 116/75 SaO2: 96 Pulse Rate: 75 Respiratory Rate: 20 Temperature: 97.1 F Patient is:: Drowsy, Oral/Nasal airway Stable to PACU at:: 10:14
--- NOTE | 2021-08-07 11:45 | P.PN_ITS ---
[facility] Anesthesia Record Part II Discharge Time: 10:44 Destination: Surgical Day Care (OP Surgery) PACU nurse assessment reviewed?: Yes Patient Condition:: Good Anesthesia Complications:: None Swallowing reflex intact?: Yes Cyanosis?: No Blood Pressure: 121/85 Pulse Rate: 80 Temperature: 98.1 F Mental Status: Alert & Oriented Pain level:: 0 Nausea and/or vomitting:: None Intake, IV Amount: 0
== END 2021-08-07 11:15 | disposition home or self-care (01) ==
LOC: OR 07:41
PROVIDERS: PCP Nurse Practitioner Family; Visit Provider Student in an Organized Health Care Education/Training Program
PROC: (CPT 11442; principal; 2021-08-07 09:00)
DX: L72.0 Epidermal cyst (principal); F32.A Depression, unspecified; D64.9 Anemia, unspecified; E03.9 Hypothyroidism, unspecified; Z91.040 Latex allergy status
CPT/HCPCS: 11442; 12051; J2405

== ENCOUNTER 2023-08-04 12:55 | Outpatient (CLI) | payer OTHER, SELFPAY ==
--- NOTE | 2023-08-04 12:59 | US_ITS ---
FINAL REPORT TECHNIQUE: Limited sonographic images of the thyroid were obtained. CLINICAL HISTORY: HYPOTHYROIDISM, thyroid removed in 2013 FINDINGS: Patient is status post thyroidectomy. No mass or adenopathy is identified. IMPRESSION: No mass or adenopathy. Reviewed, Interpreted and Dictated by Ryland Daily MD Transcribed by Fide Ghotra Authenticated and [facility]
== END 2023-08-04 23:59 | disposition home or self-care (01) ==
LOC: RAD 12:55
PROVIDERS: PCP Nurse Practitioner; Visit Provider Nurse Practitioner
DX: E03.9 Hypothyroidism, unspecified (principal)
CPT/HCPCS: 76536